=== PATIENT | female | born 1970 | race Caucasian/White ===

== ENCOUNTER 2016-09-21 14:27 | Observation (INO) | payer OTHER ==
[~2016-09-21] VITALS: Ht 170.2 cm; Wt 61.2 kg
[2016-09-21 16:39] LABS: HEMOGLOBIN 13.7 gm/dl (12.3-15.3); RED BLOOD COUNT 4.43 M/UL (4.00-5.10); WHITE BLOOD COUNT 6.4 K/UL (4.5-11.0)
[2016-09-21 17:06] LABS: BUN/CREATININE RATIO 18 (0-10)
[2016-09-21] MEDS ORDERED: LIORESAL TAB 1010 MG PO (22:36)
[2016-09-21] MEDS ORDERED: BUPROPION HCL150 M1 PO (22:37)
[2016-09-21] MEDS ORDERED: CELECOXIB200 MG PO (22:37)
[2016-09-21] MEDS ORDERED: VOLTAREN100 GM TP (22:39)
[2016-09-21] MEDS ORDERED: ESCITALOPRAM OX20 MG PO (22:39)
[2016-09-21] MEDS ORDERED: NEURONTIN 400400 MG PO (22:40)
[2016-09-21] MEDS ORDERED: HYDROCHLOROTHIA25 MG PO (22:41)
[2016-09-21] MEDS ORDERED: HYDROXYZINE PAM25 MG PO (22:45)
[2016-09-21] MEDS ORDERED: LIDODERM PATCH 51 EA EXT (22:46)
[2016-09-21] MEDS ORDERED: PANTOPRAZOLE SO40 MG PO (22:46)
[2016-09-21] MEDS ORDERED: CARAFATE1 GM PO (22:47)
[2016-09-21] MEDS ORDERED: MEDROL DOSEPAK 24 MG PO (22:48)
[2016-09-21] MEDS ORDERED: MELOXICAM7.5 MG PO (22:49)
[2016-09-21] MEDS ORDERED: PAROXETINE HCL20 MG PO (22:49)
[2016-09-22 04:42] LABS: HEMOGLOBIN 12.8 gm/dl (12.3-15.3); RED BLOOD COUNT 4.08 M/UL (4.00-5.10)
[2016-09-22 04:44] LABS: WHITE BLOOD COUNT 4.5 K/UL (4.5-11.0)
[2016-09-22 05:15] LABS: BUN/CREATININE RATIO 16 (0-10)
[2016-09-23] MEDS ORDERED: ACETAMINOPHEN325 MG PO (08:27)
== END 2016-09-23 09:45 | disposition home or self-care (01) ==
LOC: ER1 14:27 → M/S 18:00 → ZEROF 18:00 → M/S 18:00
PROVIDERS: Physician Assistant; ADMIT Emergency Medicine
DX: I95.1 Orthostatic hypotension (principal); N39.0 Urinary tract infection, site not specified; B02.29 Other postherpetic nervous system involvement; R56.9 Unspecified convulsions; F41.9 Anxiety disorder, unspecified; J45.909 Unspecified asthma, uncomplicated; K29.00 Acute gastritis without bleeding; G89.29 Other chronic pain; M54.5 Low back pain; R07.89 Other chest pain; M54.2 Cervicalgia; F17.210 Nicotine dependence, cigarettes, uncomplicated; K21.9 Gastro-esophageal reflux disease without esophagitis; Z72.3 Lack of physical exercise; Z87.11 Personal history of peptic ulcer disease; Z82.5 Family history of asthma and other chronic lower respiratory diseases; Z84.89 Family history of other specified conditions; Z79.899 Other long term (current) drug therapy
CPT/HCPCS: ECHO; 36415; 70450; 71010; 72125; 72220; 73502; 78452; 80053; 80061; 81001; 82150; 82550; 82553; 83690; 83874; 84484; 85025; 85027; 85379; 93005; 93017; 93306; 93880; 96374; 99285; A9502; G0378; J2405; J2785; J7030; J7050; Q0177; Q9963

== ENCOUNTER 2016-10-13 19:05 | Emergency (ER) | payer OTHER ==
[~2016-10-13 19:05] MED LIST: ACETAMINOPHEN325 MG PO; BUPROPION HCL150 M1 PO; CARAFATE1 GM PO; CELECOXIB200 MG PO; ESCITALOPRAM OX20 MG PO; HYDROCHLOROTHIA25 MG PO; HYDROXYZINE PAM25 MG PO; LIDODERM PATCH 51 EA EXT; LIORESAL TAB 1010 MG PO; MEDROL DOSEPAK 24 MG PO; MELOXICAM7.5 MG PO; NEURONTIN 400400 MG PO; PANTOPRAZOLE SO40 MG PO; PAROXETINE HCL20 MG PO; VOLTAREN100 GM TP
== END 2016-10-13 19:30 | disposition left against medical advice (07) ==
LOC: ER1 19:05
DX: Z53.21 Procedure and treatment not carried out due to patient leaving prior to being seen by health care provider (principal)

== ENCOUNTER 2021-10-03 14:30 | Emergency (ER) | payer OTHER ==
[~2021-10-03 14:30] MED LIST changes: +TORADOL 10 MG T10 MG PO
== END 2021-10-03 18:51 | disposition home or self-care (01) ==
LOC: ER1 14:30
DX: S62.92XA Unspecified fracture of left hand, initial encounter for closed fracture (principal); F17.200 Nicotine dependence, unspecified, uncomplicated; X58.XXXA Exposure to other specified factors, initial encounter
CPT/HCPCS: 99282

== ENCOUNTER → 2021-11-09 | Outpatient (CLI) | payer OTHER | LOC: RAD 20:53 | DX: S89.90XA Unspecified injury of unspecified lower leg, initial encounter (principal); Z78.0 Asymptomatic menopausal state; S92.335A Nondisplaced fracture of third metatarsal bone, left foot, initial encounter for closed fracture | CPT/HCPCS: 73600; 73630 ==